=== PATIENT | female | born 1975 | race Hispanic/Latino ===

== ENCOUNTER 2023-05-16 22:04 | Emergency (ER) | payer OTHER ==
[~2023-05-16] VITALS: Ht 160 cm; Wt 84.4 kg
[2023-05-16] MEDS ORDERED: DEXAMETHASONE SOD PHOSPHATE 10MG/ML 1ML VIAL ONE (22:11)
[2023-05-16] MEDS ORDERED: DiphenhydrAMINE HCL 50 MG/ML VIAL IV ONE (22:30)
[2023-05-16] MEDS ORDERED: EPINEPHRINE PF 1MG (1:1,000) 1 MG/ML AMP IM ONE (22:30)
[2023-05-16] MEDS ORDERED: DEXAMETHASONE SOD PHOSPHATE 4 MG/ML 1ML VIAL IVP ONE (22:30)
[2023-05-16] MEDS ORDERED: FAMOTIDINE 20MG VIAL IV ONE (22:30)
[2023-05-17] MEDS ORDERED: CETI10CA5 PO (02:46)
[2023-05-17] MEDS ORDERED: EPIN0.3P3 IJ (02:46)
[2023-05-17] MEDS ORDERED: HYDR50CA50 PO (02:46)
[2023-05-17 03:17] VITALS: BP 116/68
== END 2023-05-17 03:18 | disposition home or self-care (01) ==
LOC: EDH 22:04
DX: T78.49XA Other allergy, initial encounter (principal); X58.XXXA Exposure to other specified factors, initial encounter
CPT/HCPCS: 99285; 96374; 96375; 96372; J1100